=== PATIENT | female | born 1985 ===

== ENCOUNTER 2018-03-07 00:50 | Emergency (ER) | payer SELFPAY ==
[2018-03-07 01:29] VITALS: O2SAT 97
--- NOTE | 2018-03-07 03:14 | C.PDOC ---
History Of Present Illness 33 year old female presents to the ED for evaluation after she sustained a fall four hours [employer]ITE [employer]. Patient states she landed onto her right shoulder and is now complaining of pain to the area. She denies head injury, LOC, extremity numbness /weakness. Time Seen by Provider: 03/07/18 01:34 Chief Complaint (Nursing): Upper Extremity Problem/Injury History Per: Patient History/Exam Limitations: no limitations Onset/Duration Of Symptoms: Hrs (4) Current Symptoms Are (Timing): Still Present Quality: "Pain" Additional History Per: Patient Past Medical History Reviewed: Historical Data, Nursing Documentation, Vital Signs Vital Signs: Last Vital Signs Temp 98.1 F 03/07/18 03:23 Pulse 68 03/07/18 03:23 Resp 20 03/07/18 03:23 BP 107/69 03/07/18 03:23 Pulse Ox 97 03/07/18 04:27 - Medical History PMH: No Chronic Diseases Surgical History: No Surg Hx Family History: States: Unknown Family Hx - Social History Hx Alcohol Use: Yes Hx Substance Use: No - Immunization History Hx Tetanus Toxoid Vaccination: No Hx Influenza Vaccination: No Hx Pneumococcal Vaccination: No Review Of Systems Musculoskeletal: Positive for: Shoulder Pain (right) Neurological: Negative for: Weakness, Numbness, Other (LOC, head injury ) Physical Exam - Physical Exam Appears: Non-toxic, No Acute Distress Skin: Normal Color, Warm, Dry, No Ecchymosis Head: Atraumatic, Normacephalic Eye(s): bilateral: Normal Inspection Neck: Normal ROM, No Midline Cervical Tenderness, No Paracervical Tenderness, Supple Chest: Symmetrical, No Deformity, No Tenderness Extremity: No Normal ROM (limited in right shoulder secondary to pain ), Tenderness (to anterior aspect of right shoulder ), Capillary Refill (less than 2 seconds ), No Other (right clavicular or elbow tenderness ) Neurological/Psych: Oriented x3, Normal Speech, Normal Cognition ED Course And Treatment O2 Sat by Pulse Oximetry: 97 (on RA) Pulse Ox Interpretation: Normal - Other Rad Rt shoulder X-Ray: Interpreted by Me, Viewed By Me Interpretation: No fx, or dislocation Progress Note: Right shoulder XR ordered. Toradol IM administered. On re- examination, patient is resting comfortably, showing no signs of distress and reports an improvement in her pain. Patient is stable for discharge, placed in sling and is advised to follow up with her PMD within 1-2 days for further evaluation. Disposition Counseled Patient/Family Regarding: Diagnosis, Need For Followup, Rx Given - Disposition Disposition: HOME/ ROUTINE Disposition Time: 03:15 Condition: STABLE Additional Instructions: Please follow up in clinic Take motrin PO Return to ER if worse Prescriptions: Ibuprofen [Motrin] 600 mg PO Q6H #20 tab Instructions: Shoulder Sprain Forms: [employer] (Syriac) Print Language: CYMRAES - Clinical Impression Clinical Impression: Strain of shoulder, right - PA / BRANCH ASSISTANT / Resident Statement MD/DO has reviewed & agrees with the documentation as recorded. - Scribe Statement The provider has reviewed the documentation as recorded by the Scribe (Betty Romeo) All medical record entries made by the Scribe were at my direction and personally dictated by me. I have reviewed the chart and agree that the record accurately reflects my personal performance of the history, physical exam, medical decision making, and the department course for this patient. I have also personally directed, reviewed, and agree with the discharge instructions and disposition.
[2018-03-07 03:24] VITALS: BP 107/69; PULSE 68; RESP 20; TEMP 98.1
--- NOTE | 2018-03-07 08:21 | RAD ---
Right shoulder three views History: Pain. Comparison: None available. Findings: No evidence for acute displaced fracture or dislocation. Glenohumeral and acromioclavicular joint spaces are preserved. Incidentally noted is a rounded nodular density at the right lung base which may represent small nodule and or granuloma. Interval followup study may be helpful for further evaluation if clinically indicated. Impression: No evidence for acute displaced fracture or dislocation. Glenohumeral and acromioclavicular joint spaces are preserved. Incidentally noted is a rounded nodular density at the right lung base which may represent small nodule and or granuloma. Interval followup study may be helpful for further evaluation if clinically indicated.
== END 2018-03-07 03:31 | disposition home or self-care (01) ==
LOC: C.ER 00:50
DX: S46.911A Strain of unspecified muscle, fascia and tendon at shoulder and upper arm level, right arm, initial encounter (principal); W19.XXXA Unspecified fall, initial encounter
CPT/HCPCS: 73030; 96372; 99284; J1885

== ENCOUNTER 2018-03-07 23:41 | Emergency (ER) | payer SELFPAY ==
--- NOTE | 2018-03-08 03:47 | CT ---
EXAM: CT Chest Without Intravenous Contrast EXAM DATE/TIME: 03/08/2018 12:59 AM CLINICAL HISTORY: 33 years old, female; Pain; Chest pain; Additional info: Nodule on cxr, r base TECHNIQUE: Axial computed tomography images of the chest without intravenous contrast. All CT scans at this facility use one or more dose reduction techniques, viz.: automated exposure control; ma/kV adjustment per patient size (including targeted exams where dose is matched to indication; i.e. head); or iterative reconstruction technique. Coronal and sagittal reformatted images were created and reviewed. COMPARISON: No relevant prior studies available. FINDINGS: Slightly elevated right hemidiaphragm. There is a 5 mm pleural-based nodule in the right lower lung with rim calcification suggesting benignity probable granulomatous disease. There is a 3 x 4 mm nodule in the right midlung image 47. Follow up based on Sabina criteria. There are lower lung groundglass opacities bilaterally that are a nonspecific finding however could be indicative of developing infectious/inflammatory process or developing edema. Clinical correlation recommended. No aortic aneurysm. No pleural or pericardial effussions. There is residual thymic tissue in the anterior mediastinum. There is a 3.4 cm left adrenal mass incompletely characterized on this study. Further characterization could be performed with nonemergent MRI. Small mesenteric lymph nodes are noted. IMPRESSION: Minimal nonspecific groundglass opacities as above Pleural-based right lung nodule with rim calcification suggesting benignity. Right mid lung nodule discussed above. Left adrenal mass incompletely characterized on this study. Further characterization could be performed with nonemergent MRI.
--- NOTE | 2018-03-08 04:09 | C.PDOC ---
History Of Present Illness 33 year old female who was seen yesterday for shoulder pain presents to the ER after she was called back from the hospital today advising her to return for a chest CT due to an incidental finding on her x-ray. Patient denies any complaints at this time. Time Seen by Provider: 03/08/18 00:22 Chief Complaint (Nursing): Upper Extremity Problem/Injury History Per: Patient History/Exam Limitations: no limitations Onset/Duration Of Symptoms: Hrs Current Symptoms Are (Timing): Still Present Recent travel outside of the [place]: No Past Medical History Reviewed: Historical Data, Nursing Documentation, Vital Signs Vital Signs: Last Vital Signs Temp 98.0 F 03/08/18 04:18 Pulse 74 03/08/18 04:18 Resp 18 03/08/18 04:18 BP 120/81 03/08/18 04:18 Pulse Ox 97 03/08/18 04:18 Family History: States: Unknown Family Hx - Social History Hx Alcohol Use: Yes Hx Substance Use: No - Immunization History Hx Tetanus Toxoid Vaccination: No Hx Influenza Vaccination: No Hx Pneumococcal Vaccination: No Review Of Systems Constitutional: Negative for: Fever, Chills Cardiovascular: Negative for: Chest Pain, Palpitations Respiratory: Negative for: Cough, Shortness of Breath Gastrointestinal: Negative for: Nausea, Vomiting Physical Exam - Physical Exam Appears: Non-toxic Skin: Normal Color, Warm, Dry Head: Atraumatic, Normacephalic Eye(s): bilateral: Normal Inspection Oral Mucosa: Moist Chest: Symmetrical, No Tenderness Cardiovascular: Rhythm Regular Respiratory: Normal Breath Sounds, No Rales, No Rhonchi, No Wheezing Neurological/Psych: Oriented x3, Normal Speech ED Course And Treatment O2 Sat by Pulse Oximetry: 99 (Room air) Pulse Ox Interpretation: Normal - CT Scan/US CT chest Other Rad Studies (CT/US): Read By Radiologist, Radiology Report Reviewed CT/US Interpretation: EXAM: CT Chest Without Intravenous Contrast. EXAM DATE/ TIME: 03/08/2018 12:59 AM. CLINICAL HISTORY: 33 years old, female; Pain; Chest pain; Additional info: Nodule on cxr, r base. TECHNIQUE: Axial computed tomography images of the chest without intravenous contrast. All CT scans at this. facility use one or more dose reduction techniques, viz.: automated exposure control; ma/kV. adjustment per patient size (including targeted exams where dose is matched to indication; i.e. head);. or iterative reconstruction technique. Coronal and sagittal reformatted images were created and reviewed. COMPARISON: No relevant prior studies available. FINDINGS: Slightly elevated right hemidiaphragm. There is a 5 mm pleural-based nodule in the right lower lung with rim calcification suggesting. benignity probable granulomatous disease. There is a 3 x 4 mm nodule in the right midlung image 47. Follow up based on Sabina criteria. There are lower lung groundglass opacities bilaterally that are a nonspecific finding however could. be indicative of developing infectious/inflammatory process or developing edema. Clinical correlation. recommended. No aortic aneurysm. No pleural or pericardial effussions. There is residual thymic tissue in the anterior mediastinum. There is a 3.4 cm left adrenal mass incompletely characterized on this study. Further characterization. could be performed with nonemergent MRI. Small mesenteric lymph nodes are noted. IMPRESSION: Minimal nonspecific groundglass opacities as above. Pleural-based right lung nodule with rim calcification suggesting benignity. Right mid lung nodule. discussed above. Left adrenal mass incompletely characterized on this study. Further characterization could be. performed with nonemergent MRI. Progress Note: CT chest ordered, results showed a benign nodule. Results discussed with patient, explained to patient that nodule appears to be benign and that she is in no acute danger at this time, she was advised to follow up with her PMD for further evaluation, patient understands and agrees with plan. Disposition - Disposition Referrals: at [facility] [Outside] Disposition: HOME/ ROUTINE Disposition Time: 04:07 Condition: STABLE Additional Instructions: Follow up with PMD Return to ER if wprse Instructions: Pulmonary Nodule Forms: [employer] (Czech) Print Language: HEBREW - Clinical Impression Clinical Impression: Pulmonary nodule - PA / TRANSMISSION REPAIRER / Resident Statement MD/DO has reviewed & agrees with the documentation as recorded. - Scribe Statement The provider has reviewed the documentation as recorded by the Asmitaibna Gandara All medical record entries made by the Asmitaibna were at my direction and personally dictated by me. I have reviewed the chart and agree that the record accurately reflects my personal performance of the history, physical exam, medical decision making, and the department course for this patient. I have also personally directed, reviewed, and agree with the discharge instructions and disposition.
[2018-03-08 04:20] VITALS: BP 120/81; PULSE 74; RESP 18; TEMP 98
[2018-03-08 05:15] VITALS: O2SAT 99
== END 2018-03-08 04:20 | disposition home or self-care (01) ==
LOC: C.ER 23:41
DX: R91.1 Solitary pulmonary nodule (principal)
CPT/HCPCS: 71250; 96372; 99284; J1885